=== PATIENT | female | born 1935 | race Caucasian/White ===

== ENCOUNTER 2018-03-29 08:10 | Day surgery (SDC) | payer BC ==
[2018-03-27 12:45] VITALS: BMI 23.3
[2018-03-29] MEDS ORDERED: PROPOFOL 20 ML ONE ×2 (08:16)
[2018-03-29] MEDS ORDERED: LIDOCAINE HCL/PF 2% SDV 5ML VIAL ONE (08:17)
[2018-03-29 10:19] VITALS: TEMP 97.6
[2018-03-29 10:24] VITALS: BP 150/68; PULSE 78
== END 2018-03-29 10:10 | disposition home or self-care (01) ==
LOC: FASU-ENDO 08:10
PROVIDERS: ATTEND Internal Medicine Gastroenterology
PROC: 0DJD8ZZ Inspection of Lower Intestinal Tract, Via Natural or Artificial Opening Endoscopic (ICD-10-PCS; principal; 2018-03-29 09:05)
DX: K57.30 Diverticulosis of large intestine without perforation or abscess without bleeding (principal); R19.4 Change in bowel habit; K59.00 Constipation, unspecified

== ENCOUNTER 2022-04-02 09:12 | Inpatient (IN) | payer BC ==
[2022-04-02 10:18] LABS: HEMATOCRIT 31.3 % (32.4-45.2); HEMOGLOBIN 10.4 G/dL (10.7-15.3); MCH 22.1 pg (25.7-33.7); MCHC 33.3 g/dl (32.0-36.0); MEAN CELL VOLUME 66.5 fl (80-96); PLATELET COUNT 308.9 10^3/uL (134-434); RBC 4.71 10^6/uL (3.60-5.2); RDW 18.7 % (11.6-15.6); WHITE BLOOD COUNT 7.6 10^3/uL (4.0-10.8)
[2022-04-02 10:19] LABS: INR 1.07 (0.83-1.09); PROTHROMBIN TIME (PATIENT) 12.3 SEC (9.7-13.0)
[2022-04-02 10:21] LABS: ACTIVATED PTT 28.8 SECONDS (25.2-36.5)
[2022-04-02 10:23] LABS: CALCIUM 9.6 mg/dl (8.5-10); PLATELET ESTIMATE ADEQUATE
[2022-04-02] MEDS ORDERED: ENOXAPARIN NA (PORCINE) 40 MG/0.4 ML DISP.SYRIN SQ ONE ×2 (12:32→12:35)
[2022-04-02] MEDS ORDERED: ENOXAPARIN NA (PORCINE) 60 MG/0.6 ML DISP.SYRIN SQ ONE (12:58)
[2022-04-02 17:40] VITALS: BMI 20.4
[2022-04-02] MEDS ORDERED: metoPROLOL SUCCINATE 25 MG TAB.SR.24H (FP) PO SCH ×2 (18:45)
[2022-04-02] MEDS: ENOXAPARIN NA (PORCINE) 60 MG/0.6 ML DISP.SYRIN SQ SCH (21:36)
[2022-04-03] MEDS ORDERED: ACETAMINOPHEN 325 MG TABLET (FP) PO PRN (08:29)
[2022-04-03 08:56] LABS: ALBUMIN 3.5 g/dl (3.4-5.0); BILIRUBIN,TOTAL 0.8 mg/dl (0.2-1); CALCIUM 9.5 mg/dl (8.5-10); CREATININE 0.9 mg/dl (0.55-1.3); MAGNESIUM 2.2 mg/dL (1.8-2.4); TOT PROT 6.6 g/dl (6.4-8.2)
[2022-04-03] MEDS: metoPROLOL SUCCINATE 25 MG TAB.SR.24H (FP) PO SCH (09:57)
[2022-04-03 10:03] LABS: HEMATOCRIT 31.8 % (32.4-45.2); HEMOGLOBIN 10.2 G/dL (10.7-15.3); MCH 21.5 pg (25.7-33.7); MCHC 32.2 g/dl (32.0-36.0); MEAN PLT VOLUME 10.4 fl (7.5-11.1); PLATELET COUNT 312.6 10^3/uL (134-434); RBC 4.75 10^6/uL (3.60-5.2); RDW 18.5 % (11.6-15.6); WHITE BLOOD COUNT 7.4 10^3/uL (4.0-10.8)
[2022-04-03 10:15] LABS: ANISOCYTOSIS 1+; PLATELET ESTIMATE ADEQUATE
[2022-04-03] MEDS: ENOXAPARIN NA (PORCINE) 60 MG/0.6 ML DISP.SYRIN SQ SCH (21:27)
[2022-04-04] MEDS: metoPROLOL SUCCINATE 25 MG TAB.SR.24H (FP) PO SCH (10:34)
[2022-04-04] MEDS: ENOXAPARIN NA (PORCINE) 60 MG/0.6 ML DISP.SYRIN SQ SCH ×2 (10:35→21:47)
[2022-04-05] MEDS: metoPROLOL SUCCINATE 25 MG TAB.SR.24H (FP) PO SCH (09:39)
[2022-04-05] MEDS: ENOXAPARIN NA (PORCINE) 60 MG/0.6 ML DISP.SYRIN SQ SCH (09:39)
[2022-04-05 10:15] VITALS: BP 122/60; PULSE 82; RESP 16; TEMP 98
== END 2022-04-05 13:06 | disposition home or self-care (01) | DRG 176 ==
LOC: FER 09:12 → FM/S 12:19
PROVIDERS: ADMIT Internal Medicine; ATTEND Internal Medicine
DX: I26.99 Other pulmonary embolism without acute cor pulmonale (principal); I80.01 Phlebitis and thrombophlebitis of superficial vessels of right lower extremity; F03.90 Unspecified dementia, unspecified severity, without behavioral disturbance, psychotic disturbance, mood disturbance, and anxiety; I10 Essential (primary) hypertension; E78.5 Hyperlipidemia, unspecified
CPT/HCPCS: 36415; 71275-TC; 80048; 80053; 82272; 83735; 84100; 85025; 85610; 85730; 93005; 93306-TC; 93970-TC; 99285-25; C9803-CS; U0003; U0005